=== PATIENT | male | born 1975 | race Hispanic/Latino ===

== ENCOUNTER 2017-09-24 14:12 | Emergency (ER) | payer OTHER ==
[2017-09-24 15:02] LABS: Bilirubin,Urine NEG (Negative); Blood,Urine NEG (Negative); Color,Urine Yellow (Yellow); Urobilinogen,Urine < 2.0 mg/dL (<2.0)
[2017-09-24 15:29] LABS: Mucus,Urine 2+ /HPF
[2017-09-24 15:48] LABS: Basophils # (Auto) 0.1 K/mm3 (0.0-0.1); Basophils % (Auto) 1.1 % (0.0-1.8); Eosinophils # (Auto) 0.2 K/mm3 (0.0-0.4); Eosinophils % (Auto) 1.4 % (0.0-4.3); Lymphocytes # (Auto) 2.4 K/mm3 (1.2-5.4); Lymphocytes % (Auto) 20.9 % (13.4-35.0); Mean Corpuscular HGB Conc 36 % (32-34); Mean Corpuscular Hemoglobin 33 pg (28-32); Mean Corpuscular Volume 93 fl (84-94); Monocytes # (Auto) 1.2 K/mm3 (0.0-0.8); Monocytes % (Auto) 10.3 % (0.0-7.3); Platelet Count 242 K/mm3 (140-440); Red Blood Count 5.44 M/mm3 (3.65-5.03); Red Cell Distribution Width 13.1 % (13.2-15.2)
[2017-09-24 16:09] LABS: Alanine Aminotransferase 85 units/L (7-56); Albumin 4.7 g/dL (3.9-5); BUN/Creatinine Ratio 16; Blood Urea Nitrogen 14 mg/dL (9-20); Calcium 9.5 mg/dL (8.4-10.2); Hemolysis Index 7
--- NOTE | 2017-09-24 16:10 | Emergency Department Report ---
- General Chief complaint: Extremity Injury, Lower Stated complaint: LEG PAIN Time Seen by Provider: 09/24/17 15:59 Source: patient Mode of arrival: Ambulatory Limitations: No Limitations - History of Present Illness Initial comments: This is a 42-year-old male with complaint of bilateral leg pain. He states that he thinks he's been bitten by a spider that he is not sure. Patient reports that this has been there for 4 days and is getting worse. He reports pain at 8 out of 10 both sides aching and burning. Worse with touch and movement and no alleviating factors. Patient did not take any medication for pain or for infected area. Denies any wheezing, cough, stridor or headache. Denies any fever or chills. Patient said that he has been drinking today and he had a shot of vodka in the morning because he was in pain. It was reported on triage on the patient's Michael EtOH but he does not like that to me. Patient denies any back pain or any radiation of pain proximally or distally to both legs. Tetanus vaccine is not up-to-date MD complaint: insect bite/sting, discoloration, other (skin infection) Onset/Timin -: days(s) Tetanus Up to Date: no Location: LLE, RLE Severity: severe Severity scale (0 -10): 8 Quality: burning, aching Consistency: constant Improves with: none Worsens with: palpation, movement Context: other (possible spider bite per patient) Associated symptoms: itching, athralgias Treatments Prior to Arrival: none - Related Data Previous Rx's Medication Instructions Recorded Last Taken Type Meclizine [Antivert] 25 mg PO TID PRN #20 tablet 03/14/14 Unknown Rx Ondansetron [Zofran Odt] 4 mg PO Q6H #20 tab.rapdis 03/14/14 Unknown Rx Acetaminophen/Codeine [Tylenol 1 tab PO Q6H PRN #14 tab 09/24/17 Unknown Rx /Codeine # 3 tab] Ibuprofen [Motrin] 600 mg PO Q8H PRN #12 tablet 09/24/17 Unknown Rx Mupirocin [Bactroban 2%] 1 applic TP BID 7 Days #1 tube 09/24/17 Unknown Rx Sulfamethoxazole/Trimethoprim 1 each PO BID 10 Days #20 tablet 09/24/17 Unknown Rx [Bactrim DS TAB] Allergies Allergy/AdvReac Type Severity Reaction Status Date / Time No Known Allergies Allergy Verified 03/13/14 23:47 Abscess Boil HPI - HPI Chief Complaint: Extremity Injury, Lower Stated Complaint: LEG PAIN Time Seen by Provider: 09/24/17 15:59 Home Medications: Previous Rx's Medication Instructions Recorded Last Taken Type Meclizine [Antivert] 25 mg PO TID PRN #20 tablet 03/14/14 Unknown Rx Ondansetron [Zofran Odt] 4 mg PO Q6H #20 tab.rapdis 03/14/14 Unknown Rx Acetaminophen/Codeine [Tylenol 1 tab PO Q6H PRN #14 tab 09/24/17 Unknown Rx /Codeine # 3 tab] Ibuprofen [Motrin] 600 mg PO Q8H PRN #12 tablet 09/24/17 Unknown Rx Mupirocin [Bactroban 2%] 1 applic TP BID 7 Days #1 tube 09/24/17 Unknown Rx Sulfamethoxazole/Trimethoprim 1 each PO BID 10 Days #20 tablet 09/24/17 Unknown Rx [Bactrim DS TAB] Allergies/Adverse Reactions: Allergies Allergy/AdvReac Type Severity Reaction Status Date / Time No Known Allergies Allergy Verified 03/13/14 23:47 ED Review of Systems ROS: Stated complaint: LEG PAIN Other details as noted in HPI Constitutional: denies: chills, fever Eyes: denies: eye pain, eye discharge, vision change ENT: denies: ear pain, throat pain, congestion Respiratory: denies: cough, shortness of breath, SOB with exertion, SOB at rest , wheezing Cardiovascular: denies: chest pain, palpitations, dyspnea on exertion, edema, syncope, paroxysmal nocturnal dyspnea Gastrointestinal: denies: abdominal pain, nausea, vomiting, diarrhea Genitourinary: denies: urgency, dysuria Musculoskeletal: arthralgia. denies: back pain, joint swelling, myalgia Skin: change in color, pruritus. denies: rash, lesions Neurological: denies: headache, weakness, numbness, paresthesias, confusion, abnormal gait, vertigo Hematological/Lymphatic: denies: easy bleeding, easy bruising, swollen glands ED Past Medical Hx - Past Medical History Previous Medical History?: Yes Hx Hypertension: Yes - Surgical History Past Surgical History?: No - Family History Family history: hypertension - Social History Smoking Status: Current Every Day Smoker Substance Use Type: Alcohol - Medications Home Medications: Home Medications Medication Instructions Recorded Confirmed Last Taken Type Meclizine [Antivert] 25 mg PO TID PRN #20 tablet 03/14/14 Unknown Rx Ondansetron [Zofran Odt] 4 mg PO Q6H #20 tab.rapdis 03/14/14 Unknown Rx Acetaminophen/Codeine [Tylenol 1 tab PO Q6H PRN #14 tab 09/24/17 Unknown Rx /Codeine # 3 tab] Ibuprofen [Motrin] 600 mg PO Q8H PRN #12 tablet 09/24/17 Unknown Rx Mupirocin [Bactroban 2%] 1 applic TP BID 7 Days #1 tube 09/24/17 Unknown Rx Sulfamethoxazole/Trimethoprim 1 each PO BID 10 Days #20 tablet 09/24/17 Unknown Rx [Bactrim DS TAB] ED Physical Exam - General Limitations: No Limitations General appearance: alert, in no apparent distress - Head Head exam: Present: atraumatic, normocephalic, normal inspection, other (normal exam) - Eye Eye exam: Present: normal appearance, PERRL, EOMI Pupils: Present: normal accommodation - ENT ENT exam: Present: normal exam, normal orophraynx, mucous membranes moist, TM's normal bilaterally, normal external ear exam - Neck Neck exam: Present: normal inspection, full ROM, other (no cspine). Absent: tenderness, meningismus, lymphadenopathy - Respiratory Respiratory exam: Present: normal lung sounds bilaterally. Absent: respiratory distress, chest wall tenderness, accessory muscle use - Cardiovascular Cardiovascular Exam: Present: regular rate, normal rhythm, normal heart sounds. Absent: systolic murmur, diastolic murmur - GI/Abdominal GI/Abdominal exam: Present: soft, normal bowel sounds. Absent: distended, tenderness, rigid, organomegaly, mass - Extremities Exam Extremities exam: Present: normal inspection, full ROM, tenderness (bilateral distal legs, anteriorly with cellulititis, TTP. Scant drainage to left sore), normal capillary refill, pedal edema (scant trace bilateral pedal edema), other (no cc to extremities. trace pedal edema, Bilateral . no neurovascular compromise. +2 pedal pulses.). Absent: joint swelling, calf tenderness - Neurological Exam Neurological exam: Present: alert, oriented X3, normal gait, reflexes normal, other (no focal neurological deficit). Absent: motor sensory deficit - Skin Skin exam: Present: warm, dry, erythema, other (skin cellulitis) - Expanded Skin Exam Expanded Type of lesion: Present: bite/sting, other (cellulitis) Distribution of rash: RLE, LLE Description of rash: Present: size (4x7 left distal leg. 4x10 cm to rt distal leg), tenderness (Jae distal anterior leg.), erythematous, swelling, crusting, discharge, other (Distal leg with 4x7 cm erythema and rt leg with 4x10 erythema area. skin darkened to center with opening to center. not well circumscrimed. 2 cm plaque noted to both sites areas.). Absent: fluctuant, indurated ED Course Vital Signs 09/24/17 09/24/17 09/24/17 14:14 17:34 17:35 Temperature 98.7 F Pulse Rate 127 H Respiratory 22 20 20 Rate Blood Pressure 168/103 Blood Pressure [Left] O2 Sat by Pulse 97 Oximetry 09/24/17 09/24/17 09/24/17 18:10 19:12 19:16 Temperature Pulse Rate 102 H 98 H Respiratory 20 18 Rate Blood Pressure Blood Pressure 162/92 [Left] O2 Sat by Pulse 98 Oximetry 09/24/17 20:25 Temperature 98.6 F Pulse Rate 95 H Respiratory 18 Rate Blood Pressure Blood Pressure 157/100 [Left] O2 Sat by Pulse 98 Oximetry - Reevaluation(s) Reevaluation #1: 09/24/17 18:05Patient given normal saline 1 L, morphine 5 mg Toradol 30 mg IV for pain which did not completely relieve his pain. He was given Zofran 8 mg IV to prevent nausea. Cleocin 900 mg IV for infection and posterior exterior 0.5 mL to update tetanus. He has no adverse reaction from medications Reevaluation #2: 09/24/17 19:08 Patient given Percocet 5/325 2 tablets by mouth for continued pain to both legs at cellulitic site. Patient given Bactrim DS one tablet by mouth ride to discharge. I will reevaluate before discharge. Reevaluation #3: 09/24/17 19:48 Patient reports that pain is better. He is enroute home from the emergency room. Wound care to bilateral distal leg. wounds cleansed with normal saline, Neosporin ointment followed by Vaseline impregnated gauze applied to site followed by cling wrap. Patient tolerated procedure well ED Medical Decision Making - Lab Data Result diagrams: 09/24/17 15:36 09/24/17 15:36 Lab Results 09/24/17 09/24/17 09/24/17 Range/Units 15:36 15:36 15:36 WBC 11.2 H (4.5-11.0) K/mm3 RBC 5.44 H (3.65-5.03) M/mm3 Hgb 18.1 H (11.8-15.2) gm/dl Hct 50.7 H (35.5-45.6) % MCV 93 (84-94) fl MCH 33 H (28-32) pg MCHC 36 H (32-34) % RDW 13.1 L (13.2-15.2) % Plt Count 242 (140-440) K/mm3 Lymph % (Auto) 20.9 (13.4-35.0) % [place] % (Auto) 10.3 H (0.0-7.3) % Eos % (Auto) 1.4 (0.0-4.3) % Baso % (Auto) 1.1 (0.0-1.8) % Lymph # 2.4 (1.2-5.4) K/mm3 [place] # 1.2 H (0.0-0.8) K/mm3 Eos # 0.2 (0.0-0.4) K/mm3 Baso # 0.1 (0.0-0.1) K/mm3 Seg Neutrophils % 66.3 (40.0-70.0) % Seg Neutrophils # 7.5 (1.8-7.7) K/mm3 Sodium 135 L (137-145) mmol/L Potassium 4.7 (3.6-5.0) mmol/L Chloride 93.4 L (98-107) mmol/L Carbon Dioxide 24 (22-30) mmol/L Anion Gap 22 mmol/L BUN 14 (9-20) mg/dL Creatinine 0.9 (0.8-1.5) mg/dL Estimated GFR > 60 ml/min BUN/Creatinine Ratio 16 % Glucose 101 H (75-100) mg/dL Calcium 9.5 (8.4-10.2) mg/dL Total Bilirubin 0.70 (0.1-1.2) mg/dL AST 58 H (5-40) units/L ALT 85 H (7-56) units/L Alkaline Phosphatase 90 (35-129) units/L Total Protein 8.1 (6.3-8.2) g/dL Albumin 4.7 (3.9-5) g/dL Albumin/Globulin Ratio 1.4 % Urine Color (Yellow) Urine Turbidity (Clear) Urine pH (5.0-7.0) Ur Specific [place] (1.003-1.030) Urine Protein (Negative) mg/dL Urine Glucose (UA) (Negative) mg/dL Urine Ketones (Negative) mg/dL Urine Blood (Negative) Urine Nitrite (Negative) Urine Bilirubin (Negative) Urine Urobilinogen (<2.0) mg/dL Ur Leukocyte Esterase (Negative) Urine WBC (Auto) (0.0-6.0) /HPF Urine RBC (Auto) (0.0-6.0) /HPF Urine Mucus /HPF Plasma/Serum Alcohol < 0.01 (0-0.07) % 09/24/17 Range/Units Unknown WBC (4.5-11.0) K/mm3 RBC (3.65-5.03) M/mm3 Hgb (11.8-15.2) gm/dl Hct (35.5-45.6) % MCV (84-94) fl MCH (28-32) pg MCHC (32-34) % RDW (13.2-15.2) % Plt Count (140-440) K/mm3 Lymph % (Auto) (13.4-35.0) % [place] % (Auto) (0.0-7.3) % Eos % (Auto) (0.0-4.3) % Baso % (Auto) (0.0-1.8) % Lymph # (1.2-5.4) K/mm3 [place] # (0.0-0.8) K/mm3 Eos # (0.0-0.4) K/mm3 Baso # (0.0-0.1) K/mm3 Seg Neutrophils % (40.0-70.0) % Seg Neutrophils # (1.8-7.7) K/mm3 Sodium (137-145) mmol/L Potassium (3.6-5.0) mmol/L Chloride (98-107) mmol/L Carbon Dioxide (22-30) mmol/L Anion Gap mmol/L BUN (9-20) mg/dL Creatinine (0.8-1.5) mg/dL Estimated GFR ml/min BUN/Creatinine Ratio % Glucose (75-100) mg/dL Calcium (8.4-10.2) mg/dL Total Bilirubin (0.1-1.2) mg/dL AST (5-40) units/L ALT (7-56) units/L Alkaline Phosphatase (35-129) units/L Total Protein (6.3-8.2) g/dL Albumin (3.9-5) g/dL Albumin/Globulin Ratio % Urine Color Yellow (Yellow) Urine Turbidity Clear (Clear) Urine pH 5.0 (5.0-7.0) Ur Specific [place] 1.027 (1.003-1.030) Urine Protein 100 mg/dl (Negative) mg/dL Urine Glucose (UA) Neg (Negative) mg/dL Urine Ketones Neg (Negative) mg/dL Urine Blood Neg (Negative) Urine Nitrite Neg (Negative) Urine Bilirubin Neg (Negative) Urine Urobilinogen < 2.0 (<2.0) mg/dL Ur Leukocyte Esterase Neg (Negative) Urine WBC (Auto) 3.0 (0.0-6.0) /HPF Urine RBC (Auto) 4.0 (0.0-6.0) /HPF Urine Mucus 2+ /HPF Plasma/Serum Alcohol (0-0.07) % - Radiology Data Radiology results: report reviewed - Medical Decision Making This is a 42-year-old male presented to the emergency room complaining that he is having sore, redness and he thinks he has been bitten by something this is been going on for 4 days and is having some drainage from site. Full legs. He denies any fever or chills. He is having pain. Patient said he thinks he has an infection and would like to be treated. I examined patient and found to have bilateral distal leg cellulitis with pedal into the center and scant drainage noted from leg. There is malodorous. Wound culture sent. Pedal pulses are 2+ and he has no neurovascular compromise. Patient had CBC which was stable his white count is 11.1 and H&H is elevated, CMP stable and urinalysis is stable. Patient was treated for pain in emergency room and pain is managed. He was given antinausea medication to prevent nausea and also started on Cleocin 900 mg IV along with normal saline 1 L IV in emergency room. Pain is better. I discussed laboratory results and clinical findings the patient along with diagnosis and he voiced understanding. Dr. Rose saw and examined patient and agrees with treatment plan. A/P 1: Cellulitis bilateral legs secondary to insect bite per patient-patient started on Cleocin 900 mg IV and will be discharged home in [facility]. CBC is stable Patient given Boostrix 0.5 mL to update tetanus. Patient wants cleansed with normal saline, Neosporin ointment place a side followed by Vaseline impregnated gauze and Kristen wrap. Patient will be referred to wound care center. Patient was also given Bactrim DS to start antibiotic treatment . triple antibiotc2: Arthralgia both legs-morphine 5 mg IV, Toradol 30 mg IV and Percocet 5/310 52 tablets emergency room which relieved this pain. He was given Zofran 8 mg IV to prevent nausea from pain medication and he did not have any nausea. Patient educated on diagnosis, laboratory findings, medication, treatment plan and acute wound care and he voiced understanding. Vital signs are stable and is of overall it needs that his pain is better and he feels better. Patient referred to [facility] to follow-up in 2 days and to return to emergency room in 3 days for reevaluation of 1. He voiced understanding. Discharged from emergency room in stable condition with prescription for Bactrim DS, Bactroban, Tylenol 3 and Motrin. Critical care attestation.: If time is entered above; I have spent that time in minutes in the direct care of this critically ill patient, excluding procedure time. ED Disposition Clinical Impression: Bilateral cellulitis of lower leg, Arthralgia of both lower legs, Insect bite of lower leg Disposition: DC-01 TO HOME OR SELFCARE Is pt being admited?: No Does the pt Need Aspirin: No Condition: Stable Instructions: Cellulitis (ED), Insect Bite or Sting (ED), Acute Wound Care (ED) , Arthralgia (ED) Additional Instructions: Please see discharge instruction in acute wound care Return to emergency room in 2 days for follow-up visit for evaluation of wound to both legs Keep affected area clean and dry. Clean with warm soapy water and apply Bactroban ointment twice daily 7 days. Take Tylenol 3 for severe pain and please do not drive or operate heavy machinery while taking this medication Motrin for mild to moderate pain and please take medication with food to prevent nausea or irritation to stomach lining Take Bactrim DS for infection Return to the emergency room if, he developed fever, chills, increased pain and drainage from site, nausea and vomited, increase in redness and/or weakness. Prescriptions: Acetaminophen/Codeine [Tylenol /Codeine # 3 tab] 1 tab PO Q6H PRN #14 tab PRN Reason: moderate to severe pain Ibuprofen [Motrin] 600 mg PO Q8H PRN #12 tablet PRN Reason: Pain Mupirocin [Bactroban 2%] 1 applic TP BID 7 Days #1 tube Sulfamethoxazole/Trimethoprim [Bactrim DS TAB] 1 each PO BID 10 Days #20 tablet Referrals: return to, emergency room in 3 days [Other] - 09/27/17 (This is to reevaluate you want to ensure that it is healing well) [facility] [Outside] - 09/26/17 PRIMARY CAREMD [Primary Care Provider] - 09/26/17
[2017-09-24] MEDS ORDERED: MORPHINE IV ONE (16:13)
[2017-09-24] MEDS ORDERED: NACL 0.9% 1000 ML 1,000 ML IV ONE (16:13)
[2017-09-24] MEDS ORDERED: ZOFRAN IV ONE (16:13)
[2017-09-24] MEDS ORDERED: CLEOCIN 900 MG/50 mL 900 MG/50 ML BAG IV ONE (16:13)
[2017-09-24] MEDS ORDERED: TORADOL IV ONE (16:19)
[2017-09-24] MEDS ORDERED: BOOSTRIX IM ONE (16:19)
[2017-09-24 16:29] LABS: Hematocrit 50.7 % (35.5-45.6); Hemoglobin 18.1 gm/dl (11.8-15.2)
[2017-09-24] MEDS ORDERED: BACTRIM DS PO ONE (19:06)
[2017-09-24] MEDS ORDERED: PERCOCET 5/325 PO ONE (19:06)
[2017-09-24] MEDS ORDERED: TRIPLE ANTIBIOTIC TP ONE (19:48)
[2017-09-24] MEDS ORDERED: ALUM-MAG HYDROX-SIMETH 200-200-20MG/5ML PO ONE (20:14)
[2017-09-24 20:26] VITALS: BP 157/100
== END 2017-09-24 20:27 | disposition home or self-care (01) ==
LOC: ED 14:12
DX: S80.862A Insect bite (nonvenomous), left lower leg, initial encounter (principal); S80.861A Insect bite (nonvenomous), right lower leg, initial encounter; L03.116 Cellulitis of left lower limb; L03.115 Cellulitis of right lower limb; I10 Essential (primary) hypertension; F17.200 Nicotine dependence, unspecified, uncomplicated; W57.XXXA Bitten or stung by nonvenomous insect and other nonvenomous arthropods, initial encounter; Y93.89 Activity, other specified; Y92.89 Other specified places as the place of occurrence of the external cause; Y99.8 Other external cause status
CPT/HCPCS: 36415; 80053; 81001; 85025; 87076; 87116; 87186; 96365; 96375; 99284; G0480; J1885; J2270; J2405; J7030; 80320; A6250

== ENCOUNTER 2017-09-30 09:57 | Inpatient (IN) | payer OTHER ==
[2017-09-30] MEDS ORDERED: NACL 0.9% 500 ML 500 ML IV ONE (10:13)
[2017-09-30 10:45] LABS: Basophils # (Auto) 0.1 K/mm3 (0.0-0.1); Basophils % (Auto) 1.2 % (0.0-1.8); Eosinophils # (Auto) 0.2 K/mm3 (0.0-0.4); Eosinophils % (Auto) 2.5 % (0.0-4.3); Hematocrit 47.1 % (35.5-45.6); Hemoglobin 16.2 gm/dl (11.8-15.2); Lymphocytes # (Auto) 2.2 K/mm3 (1.2-5.4); Lymphocytes % (Auto) 25.7 % (13.4-35.0); Mean Corpuscular HGB Conc 34 % (32-34); Mean Corpuscular Hemoglobin 32 pg (28-32); Mean Corpuscular Volume 94 fl (84-94); Monocytes # (Auto) 0.9 K/mm3 (0.0-0.8); Monocytes % (Auto) 10.8 % (0.0-7.3); Platelet Count 230 K/mm3 (140-440); Red Blood Count 5.02 M/mm3 (3.65-5.03); Red Cell Distribution Width 12.9 % (13.2-15.2)
--- NOTE | 2017-09-30 10:47 | XRay Report ---
Single view chest: History: Possible sepsis. Findings: Normal cardiomediastinal silhouette is midline. Suspicion of a nodule identified in the left cardiophrenic region. Measures 1 cm. Normal CP angles. No consolidation. Impression: Suspicion of a nodular left lower lobe and
[2017-09-30] MEDS ORDERED: VANCOMYCIN PHARMACY TO DOSE IV SCH (11:00)
[2017-09-30] MEDS ORDERED: NACL 0.9% 1000 ML 1,000 ML IV ONE (11:00)
[2017-09-30 11:13] LABS: Alanine Aminotransferase 116 units/L (7-56); Albumin 4.3 g/dL (3.9-5); BUN/Creatinine Ratio 8; Blood Urea Nitrogen 10 mg/dL (9-20); Calcium 9.2 mg/dL (8.4-10.2); Hemolysis Index 6
[2017-09-30 11:16] LABS: Creatine Kinase MB 1.4 ng/mL (0.0-4.0)
--- NOTE | 2017-09-30 11:42 | Emergency Department Report ---
ED General Adult HPI - General Chief complaint: Fever Stated complaint: leg pain Time Seen by Provider: 09/30/17 10:51 Source: patient Mode of arrival: Ambulatory Limitations: No Limitations - History of Present Illness Initial comments: 42-year-old male with third emergency department visit for rash above both ankles. Patient states he initially told [facility] that he had a "rash". He was here less than a week ago and placed on Bactrim and Bactroban for an apparent infection. He states that he works in [employer]. About 2 weeks ago prior to this problem, he was in an apartment complex he states was filled with spiders and snakes doing work. He states he did see spiders bite him or some other insect. He denies a previous history of MRSA. He states that recently he has had fevers and occasionally shaking chills. He did not measure his temperature at home. Additionally he complains of intermittent tightness in his anterior chest sometimes associated with shortness of breath. He is not complaining of this at the time of my encounter. He denies any previous diagnosis of any chronic medical issue to include coronary artery disease or COPD. He also denies intravenous drug abuse. Prescription and ointment. Despite this the redness and swelling has progressed. -: week(s) Location: lower extremity Quality: aching (occasional aching for redness and swelling is the principal complaint) Consistency: intermittent Improves with: none Worsens with: none Associated Symptoms: chest pain, fever/chills Treatments Prior to Arrival: other (see HPI) - Related Data Previous Rx's Medication Instructions Recorded Last Taken Type Meclizine [Antivert] 25 mg PO TID PRN #20 tablet 03/14/14 Unknown Rx Ondansetron [Zofran Odt] 4 mg PO Q6H #20 tab.rapdis 03/14/14 Unknown Rx Acetaminophen/Codeine [Tylenol 1 tab PO Q6H PRN #14 tab 09/24/17 Unknown Rx /Codeine # 3 tab] Ibuprofen [Motrin] 600 mg PO Q8H PRN #12 tablet 09/24/17 Unknown Rx Mupirocin [Bactroban 2%] 1 applic TP BID 7 Days #1 tube 09/24/17 Unknown Rx Sulfamethoxazole/Trimethoprim 1 each PO BID 10 Days #20 tablet 09/24/17 Unknown Rx [Bactrim DS TAB] Allergies Allergy/AdvReac Type Severity Reaction Status Date / Time Penicillins Allergy Itching Verified 09/30/17 10:18 ED Review of Systems ROS: Stated complaint: leg pain Other details as noted in HPI Constitutional: denies: chills, fever Eyes: denies: eye pain, eye discharge, vision change ENT: denies: ear pain, throat pain Respiratory: denies: cough, shortness of breath, wheezing Cardiovascular: denies: chest pain, palpitations Endocrine: no symptoms reported Gastrointestinal: denies: abdominal pain, nausea, diarrhea Genitourinary: denies: urgency, dysuria Musculoskeletal: denies: back pain, joint swelling, arthralgia Skin: denies: rash, lesions Neurological: denies: headache, weakness, paresthesias Psychiatric: denies: anxiety, depression Hematological/Lymphatic: denies: easy bleeding, easy bruising ED Past Medical Hx - Past Medical History Previous Medical History?: Yes Hx Hypertension: Yes - Surgical History Past Surgical History?: No - Social History Smoking Status: Current Every Day Smoker Substance Use Type: None - Medications Home Medications: Home Medications Medication Instructions Recorded Confirmed Last Taken Type Meclizine [Antivert] 25 mg PO TID PRN #20 tablet 03/14/14 Unknown Rx Ondansetron [Zofran Odt] 4 mg PO Q6H #20 tab.rapdis 03/14/14 Unknown Rx Acetaminophen/Codeine [Tylenol 1 tab PO Q6H PRN #14 tab 09/24/17 Unknown Rx /Codeine # 3 tab] Ibuprofen [Motrin] 600 mg PO Q8H PRN #12 tablet 09/24/17 Unknown Rx Mupirocin [Bactroban 2%] 1 applic TP BID 7 Days #1 tube 09/24/17 Unknown Rx Sulfamethoxazole/Trimethoprim 1 each PO BID 10 Days #20 tablet 09/24/17 Unknown Rx [Bactrim DS TAB] ED Physical Exam - General Limitations: No Limitations General appearance: alert, in no apparent distress - Head Head exam: Present: atraumatic, normocephalic - Eye Eye exam: Present: normal appearance, PERRL, EOMI. Absent: scleral icterus - ENT ENT exam: Present: mucous membranes moist - Neck Neck exam: Present: normal inspection. Absent: tenderness, meningismus - Respiratory Respiratory exam: Present: normal lung sounds bilaterally. Absent: respiratory distress - Cardiovascular Cardiovascular Exam: Present: regular rate, normal rhythm. Absent: systolic murmur, diastolic murmur, rubs, gallop - GI/Abdominal GI/Abdominal exam: Present: soft, normal bowel sounds. Absent: distended, tenderness, guarding, rebound, rigid - Rectal Rectal exam: Present: deferred - Extremities Exam Extremities exam: Present: normal inspection - Back Exam Back exam: Present: normal inspection - Neurological Exam Neurological exam: Present: alert, oriented X3, CN II-XII intact. Absent: motor sensory deficit - Psychiatric Psychiatric exam: Present: normal mood, flat affect - Skin Skin exam: Present: other (the patient has normal multiple annular ulcers least through the dermis above the sock line bilaterally. There appears to be some necrosis associated. There is edema and erythema extending below the mid calf bilaterally.). Absent: rash - Other Other exam information: Vascular exam is intact good pulses bilateral feet. ED Course Vital Signs 09/30/17 10:09 Temperature 99.0 F Pulse Rate 123 H Respiratory 20 Rate Blood Pressure 154/90 O2 Sat by Pulse 97 Oximetry - Reevaluation(s) Reevaluation #1: It is entirely possible that this infection started off with insect bites of some sort perhaps spiders. Patient is referred to Dr. Boss. I note he has elevated LFTs. I wouldn't be surprised if he has chronic hepatitis C. 09/30/17 12:23 ED Medical Decision Making - Lab Data Result diagrams: 09/30/17 10:17 09/30/17 10:17 Laboratory Results - last 24 hr 09/30/17 09/30/17 09/30/17 10:17 10:17 10:17 WBC 8.5 RBC 5.02 Hgb 16.2 H Hct 47.1 H MCV 94 MCH 32 MCHC 34 RDW 12.9 L Plt Count 230 Lymph % (Auto) 25.7 [place] % (Auto) 10.8 H Eos % (Auto) 2.5 Baso % (Auto) 1.2 Lymph # 2.2 [place] # 0.9 H Eos # 0.2 Baso # 0.1 Seg Neutrophils % 59.8 Seg Neutrophils # 5.1 PT 13.7 INR 1.00 VBG pH Sodium 139 Potassium 3.8 Chloride 100.4 Carbon Dioxide 21 L Anion Gap 21 BUN 10 Creatinine 1.2 Estimated GFR > 60 BUN/Creatinine Ratio 8 Glucose 125 H Lactic Acid Calcium 9.2 Total Bilirubin 0.50 AST 72 H ALT 116 H Alkaline Phosphatase 87 Total Creatine Kinase CK-MB (CK-2) CK-MB (CK-2) Rel Index Troponin T Total Protein 7.4 Albumin 4.3 Albumin/Globulin Ratio 1.4 09/30/17 09/30/17 09/30/17 10:17 10:17 10:17 WBC RBC Hgb Hct MCV MCH MCHC RDW Plt Count Lymph % (Auto) [place] % (Auto) Eos % (Auto) Baso % (Auto) Lymph # [place] # Eos # Baso # Seg Neutrophils % Seg Neutrophils # PT INR VBG pH 7.411 Sodium Potassium Chloride Carbon Dioxide Anion Gap BUN Creatinine Estimated GFR BUN/Creatinine Ratio Glucose Lactic Acid 1.60 Calcium Total Bilirubin AST ALT Alkaline Phosphatase Total Creatine Kinase 77 CK-MB (CK-2) 1.4 CK-MB (CK-2) Rel Index 1.8 Troponin T < 0.010 Total Protein Albumin Albumin/Globulin Ratio - EKG Data -: EKG Interpreted by Me EKG shows normal: sinus rhythm, axis, intervals, QRS complexes, ST-T waves Rate: normal - EKG Data Interpretation: normal EKG - Radiology Data Radiology results: report reviewed interpreted by me: 1 cm left lower lobe nodule. Critical care attestation.: If time is entered above; I have spent that time in minutes in the direct care of this critically ill patient, excluding procedure time. ED Disposition Clinical Impression: Infected insect bites of multiple sites, Bilateral cellulitis of lower leg, Nodule of lower lobe of left lung, Elevated transaminase level Chest pain Qualifiers: Chest pain type: unspecified Qualified Code(s): R07.9 - Chest pain, unspecified Disposition: OP ADMIT IP TO THIS HOSP Is pt being admited?: Yes Does the pt Need Aspirin: Yes Condition: Stable Instructions: Chest Pain (ED) Referrals: PRIMARY CARE, [Primary Care Provider] - 3-5 Days Time of Disposition: 12:36
[2017-09-30] MEDS ORDERED: MERREM 1,000 MG in NACL 0.9% 100 ML IV ONE (12:05)
[2017-09-30] MEDS ORDERED: TYLENOL PO PRN ×2 (12:22→12:38)
[2017-09-30] MEDS ORDERED: SODIUM CHLORIDE FLUSH SYRINGE 10 ML IV PRN ×2 (12:22→12:38)
[2017-09-30] MEDS ORDERED: ZOFRAN IV PRN ×2 (12:22→12:38)
[2017-09-30] MEDS ORDERED: PROVENTIL IH PRN (12:22)
[2017-09-30] MEDS ORDERED: VANCOMYCIN 2,000 MG in NACL 0.9% 500 ML 500 ML IV ONE (12:30)
[2017-09-30] MEDS ORDERED: ASPIRIN PO ONE (12:36)
[2017-09-30] MEDS ORDERED: ANTIVERT PO PRN (12:38)
[2017-09-30] MEDS ORDERED: DILAUDID IV ONE (12:53)
--- NOTE | 2017-09-30 13:08 | History and Physical Report ---
History of Present Illness Chief complaint: My legs hurt History of present illness: 42 YO Male with Nicotine dependence presents to ED for evaluation. Pt states that he has experienced painful rash to both lower legs over the past 2 weeks with worsening symptoms over the same time frame. Pt was seen and evaluated in ED and treated with outpatient antibiotic therapy. Pt states that he was compliant with oral antibiotics, and topical therapy but his symptoms have worsened. Pt acknowledges subjective fever over the past 3 days. Pt denies trauma, BRBPR, unintentional weight loss, night sweats. Pt is an information technology technician , and prior to the onset of symptoms he was installing an HVAC system at a residence where there were chickens, cats. The patient was working under the home and he also noticed that there were several rats, as well as a bed of snakes. Pt states that the lesions started off as solitary lesions that got progressively worse and spread up both his legs. Pt seen and evaluated in ED and found to have SIRS, BLE Cellulitis. Pt admitted to medical floor. Past History Past Medical History: other (Nicotine Dependence) Past Surgical History: No surgical history, Other (reviewed) Social history: single, lives with family, smoking. denies: alcohol abuse, prescription drug abuse, IV drug use Family history: no significant family history (reviewed) Medications and Allergies Allergies Allergy/AdvReac Type Severity Reaction Status Date / Time Penicillins Allergy Itching Verified 09/30/17 10:18 Home Medications Medication Instructions Recorded Confirmed Last Taken Type Ibuprofen [Motrin] 600 mg PO Q8H PRN #12 tablet 09/24/17 09/30/17 Unknown Rx Mupirocin [Bactroban 2%] 1 applic TP BID 7 Days #1 tube 09/24/17 09/30/17 Unknown Rx Sulfamethoxazole/Trimethoprim 1 each PO BID 10 Days #20 tablet 09/24/17 Unknown Rx [Bactrim DS TAB] Active Meds: Active Medications Acetaminophen (Tylenol) 650 mg PO Q4H PRN PRN Reason: Pain MILD(1-3)/Fever >100.5/FOWLER Albuterol (Proventil) 2.5 mg IH Q4HRT PRN PRN Reason: Shortness Of Breath Vancomycin HCl 2,000 mg/ (Sodium Chloride) 520 mls @ 250 mls/hr IV ONCE ONE Stop: 09/30/17 14:34 Doxycycline Hyclate 100 mg/ (Sodium Chloride) 250 mls @ 250 mls/hr IV Q12HR [facility] ; Protocol Ibuprofen (Motrin) 600 mg PO Q8H PRN PRN Reason: Pain Meclizine HCl (Antivert) 25 mg PO TID PRN PRN Reason: Vertigo Ondansetron HCl (Zofran) 4 mg IV Q8H PRN PRN Reason: Nausea And Vomiting Ondansetron HCl (Zofran Odt) 4 mg PO Q6H [facility]LETTE Ondansetron HCl (Zofran) 4 mg IV Q8H PRN PRN Reason: Nausea And Vomiting Oxycodone/Acetaminophen (Percocet 5/325) 1 tab PO Q6H PRN PRN Reason: Pain, Moderate (4-6) Sodium Chloride (Sodium Chloride Flush Syringe 10 Ml) 10 ml IV BID ARLETTE Sodium Chloride (Sodium Chloride Flush Syringe 10 Ml) 10 ml IV PRN PRN PRN Reason: LINE FLUSH Sodium Chloride (Sodium Chloride Flush Syringe 10 Ml) 10 ml IV BID ARLETTE Sodium Chloride (Sodium Chloride Flush Syringe 10 Ml) 10 ml IV PRN PRN PRN Reason: LINE FLUSH Vancomycin HCl (Vancomycin Pharmacy To Dose) 1 each IV PKCONSULT ARLETTE; Protocol Review of Systems Constitutional: fever, no weight loss, no weight gain, no chills, no sweats, no night sweats, no fatigue, no weakness Ears, nose, mouth and throat: no ear pain, no ear discharge, no tinnitis, no decreased hearing, no nose pain, no nasal congestion, no nasal discharge Cardiovascular: no chest pain, no orthopnea, no palpitations, no rapid/ irregular heart beat, no edema, no syncope Respiratory: no cough, no cough with sputum, no excessive sputum, no hemoptysis , no shortness of breath Gastrointestinal: no abdominal pain, no nausea, no vomiting, no diarrhea, no constipation, no change in bowel habits Genitourinary Male: no hematuria, no flank pain, no discharge Rectal: no pain, no incontinence, no bleeding Musculoskeletal: no neck stiffness, no neck pain, no shooting arm pain, no arm numbness/tingling, no low back pain, no shooting leg pain Integumentary: rash, pruritis, redness, blisters, lesions, darkening of skin Neurological: no transient paralysis, no paralysis, no weakness, no parathesias , no numbness, no tingling, no seizures Psychiatric: no anxiety, no memory loss, no change in sleep habits, no sleep disturbances, no insomnia, no hypersomnia, no change in appetite, no change in libido, no suicidal ideation, no disorientation Endocrine: no cold intolerance, no heat intolerance, no polyphagia, no excessive thirst, no polydipsia, no polyuria, no nocturia, no excessive sweating Hematologic/Lymphatic: no easy bruising, no easy bleeding, no lymphadenopathy, no lymphedema Allergic/Immunologic: no urticaria, no allergic rhinitis, no wheezing, no persistent infections, no anaphylaxis Exam - Constitutional Vitals: Temp Pulse Resp BP Pulse Ox 99.0 F 123 H 20 153/111 99 09/30/17 10:09 09/30/17 10:09 09/30/17 10:09 09/30/17 12:00 09/30/17 12:00 General appearance: Present: mild distress - EENT Eyes: Present: PERRL ENT: hearing intact, clear oral mucosa - Neck Neck: Present: supple, normal ROM - Respiratory Respiratory effort: normal Respiratory: bilateral: CTA - Cardiovascular Heart Sounds: Present: S1 & S2. Absent: rub, click - Extremities Extremities: pulses symmetrical, No edema Extremity abnormal: edema, ulceration, erythema, tenderness Peripheral Pulses: within normal limits - Abdominal General gastrointestinal: Present: soft, non-tender, non-distended, normal bowel sounds Male genitourinary: Present: normal - Integumentary Integumentary: Present: clear, warm, dry - Musculoskeletal Musculoskeletal: gait normal, strength equal bilaterally - Psychiatric Psychiatric: appropriate mood/affect, intact judgment & insight - Neurologic Neurologic: CNII-XII intact, moves all extremities Results - Labs CBC & Chem 7: 09/30/17 10:17 09/30/17 10:17 Labs: Abnormal lab results 09/30/17 09/30/17 09/30/17 Range/Units 10:17 10:17 10:17 Hgb 16.2 H (11.8-15.2) gm/dl Hct 47.1 H (35.5-45.6) % RDW 12.9 L (13.2-15.2) % [place] % (Auto) 10.8 H (0.0-7.3) % [place] # 0.9 H (0.0-0.8) K/mm3 D-Dimer 1274.00 H (0-234) ng/mlDDU Carbon Dioxide 21 L (22-30) mmol/L Glucose 125 H (75-100) mg/dL AST 72 H (5-40) units/L ALT 116 H (7-56) units/L Assessment and Plan - Patient Problems (1) SIRS (systemic inflammatory response syndrome) Current Visit: Yes Status: Acute Plan to address problem: IV antibiotics, IVF, supportive care, HIV 1/2, Hepatitis panel, supportive care. (2) Nicotine dependence with withdrawal Current Visit: Yes Status: Acute Qualifiers: Nicotine product type: cigarettes Qualified Code(s): F17.213 - Nicotine dependence, cigarettes, with withdrawal Plan to address problem: smoking cessation counseling (3) Bilateral cellulitis of lower leg Current Visit: Yes Status: Acute Plan to address problem: IV antibiotics, supportive care. Will treat with empiric antibiotics to comer MRSA. Will also treat with Doxycycline to cover zoonotic infections like Bartonella. wound cultures, wound care nurse consult. (4) Nodule of lower lobe of left lung Current Visit: Yes Status: Acute Plan to address problem: CTA Chest, D dimer, supportive care, (5) DVT prophylaxis Current Visit: Yes Status: Acute Plan to address problem: lovenox s/q
[2017-09-30 14:09] LABS: Hepatitis A Antibody IgM Non-Reactive (NonReactive); Hepatitis B Core IgM Non-Reactive (NonReactive); Hepatitis B Surface Antigen Non-Reactive (Negative); Hepatitis C Virus Antibody Non-Reactive (NonReactive)
--- NOTE | 2017-09-30 14:56 | Cat Scan Report ---
CTA chest: History: Dyspnea. Findings: No evidence thickening as a pulmonary embolism. No mediastinal mass or adenopathy. No pleural pericardial effusion. No acute consolidation and lung parenchyma. Discoid atelectasis left lower lobe. No definite mass. Impression: No evidence of pulmonary embolism. No acute lung changes. Discoid atelectasis left lower lobe.
[2017-09-30] MEDS: PERCOCET 5/325 PO PRN (18:14)
[2017-09-30] MEDS: ZOFRAN ODT PO SCH (18:14)
[2017-09-30] MEDS ORDERED: SODIUM CHLORIDE FLUSH SYRINGE 10 ML IV SCH (22:00)
[2017-09-30] MEDS: DOXYCYCLINE HYCLATE 100 MG in NACL 0.9% 250ML 250 ML IV SCH (22:11)
[2017-09-30] MEDS: MOTRIN PO PRN (22:12)
[2017-09-30] MEDS: SODIUM CHLORIDE FLUSH SYRINGE 10 ML IV SCH (22:13)
[2017-10-01] MEDS: ZOFRAN ODT PO SCH ×5 (00:47→23:41)
[2017-10-01 04:36] LABS: Bilirubin,Urine NEG (Negative); Blood,Urine NEG (Negative); Color,Urine Yellow (Yellow); Protein,Urine <15 mg/dL mg/dL (Negative); Urobilinogen,Urine < 2.0 mg/dL (<2.0); WBC,Urine < 1.0 /HPF (0.0-6.0)
[2017-10-01] MEDS: DOXYCYCLINE HYCLATE 100 MG in NACL 0.9% 250ML 250 ML IV SCH ×2 (11:07→23:04)
[2017-10-01] MEDS: SODIUM CHLORIDE FLUSH SYRINGE 10 ML IV SCH (11:09)
--- NOTE | 2017-10-01 12:16 | Progress Note ---
Assessment and Plan Assessment and plan: SIRS. Continue IV antibiotics and follow cultures. Bilateral lower extremity cellulitis. Continue antibiotics as noted above. Wound care. ID consultation. ? Left lower lobe lung nodule. CTA revealed discoid atelectasis. Follow-up repeat chest x-ray History Interval history: No new issues overnight. Hospitalist Physical - Constitutional Vitals: Temp Pulse Resp BP Pulse Ox 98.5 F 78 18 123/80 95 10/01/17 05:38 10/01/17 05:38 10/01/17 05:38 10/01/17 05:38 10/01/17 09:37 General appearance: Present: no acute distress - EENT Eyes: Present: PERRL, EOM intact ENT: hearing intact, clear oral mucosa, dentition normal - Neck Neck: Present: supple, normal ROM - Respiratory Respiratory effort: normal Respiratory: bilateral: CTA - Cardiovascular Rhythm: regular Heart Sounds: Present: S1 & S2. Absent: gallop, rub - Extremities Extremities: no ischemia, No edema, Full ROM - Abdominal General gastrointestinal: soft, non-tender, non-distended, normal bowel sounds - Integumentary Integumentary: Present: clear, warm, dry - Neurologic Neurologic: CNII-XII intact, moves all extremities Results - Labs CBC & Chem 7: 09/30/17 10:17 09/30/17 10:17 Labs: Laboratory Last Values WBC 8.5 K/mm3 (4.5-11.0) 09/30/17 10:17 RBC 5.02 M/mm3 (3.65-5.03) 09/30/17 10:17 Hgb 16.2 gm/dl (11.8-15.2) H 09/30/17 10:17 Hct 47.1 % (35.5-45.6) H 09/30/17 10:17 MCV 94 fl (84-94) 09/30/17 10:17 MCH 32 pg (28-32) 09/30/17 10:17 MCHC 34 % (32-34) 09/30/17 10:17 RDW 12.9 % (13.2-15.2) L 09/30/17 10:17 Plt Count 230 K/mm3 (140-440) 09/30/17 10:17 Lymph % (Auto) 25.7 % (13.4-35.0) 09/30/17 10:17 [place] % (Auto) 10.8 % (0.0-7.3) H 09/30/17 10:17 Eos % (Auto) 2.5 % (0.0-4.3) 09/30/17 10:17 Baso % (Auto) 1.2 % (0.0-1.8) 09/30/17 10:17 Lymph # 2.2 K/mm3 (1.2-5.4) 09/30/17 10:17 [place] # 0.9 K/mm3 (0.0-0.8) H 09/30/17 10:17 Eos # 0.2 K/mm3 (0.0-0.4) 09/30/17 10:17 Baso # 0.1 K/mm3 (0.0-0.1) 09/30/17 10:17 Seg Neutrophils % 59.8 % (40.0-70.0) 09/30/17 10:17 Seg Neutrophils # 5.1 K/mm3 (1.8-7.7) 09/30/17 10:17 PT 13.7 Sec. (12.2-14.9) 09/30/17 10:17 INR 1.00 (0.87-1.13) 09/30/17 10:17 D-Dimer 1274.00 ng/mlDDU (0-234) H 09/30/17 10:17 VBG pH 7.411 (7.320-7.420) 09/30/17 10:17 Sodium 139 mmol/L (137-145) 09/30/17 10:17 Potassium 3.8 mmol/L (3.6-5.0) 09/30/17 10:17 Chloride 100.4 mmol/L (98-107) 09/30/17 10:17 Carbon Dioxide 21 mmol/L (22-30) L 09/30/17 10:17 Anion Gap 21 mmol/L 09/30/17 10:17 BUN 10 mg/dL (9-20) 09/30/17 10:17 Creatinine 1.2 mg/dL (0.8-1.5) 09/30/17 10:17 Estimated GFR > 60 ml/min 09/30/17 10:17 BUN/Creatinine Ratio 8 % 09/30/17 10:17 Glucose 125 mg/dL (75-100) H 09/30/17 10:17 POC Glucose 173 (70-105) H 10/01/17 11:50 Lactic Acid 0.80 mmol/L (0.7-2.0) 09/30/17 12:56 Calcium 9.2 mg/dL (8.4-10.2) 09/30/17 10:17 Total Bilirubin 0.50 mg/dL (0.1-1.2) 09/30/17 10:17 AST 72 units/L (5-40) H 09/30/17 10:17 ALT 116 units/L (7-56) H 09/30/17 10:17 Alkaline Phosphatase 87 units/L (35-129) 09/30/17 10:17 Total Creatine Kinase 77 units/L (55-170) 09/30/17 10:17 CK-MB (CK-2) 1.4 ng/mL (0.0-4.0) 09/30/17 10:17 CK-MB (CK-2) Rel Index 1.8 (0-4) 09/30/17 10:17 Troponin T < 0.010 ng/mL (0.00-0.029) 09/30/17 10:17 Total Protein 7.4 g/dL (6.3-8.2) 09/30/17 10:17 Albumin 4.3 g/dL (3.9-5) 09/30/17 10:17 Albumin/Globulin Ratio 1.4 % 09/30/17 10:17 Urine Color Yellow (Yellow) 09/30/17 13:00 Urine Turbidity Clear (Clear) 09/30/17 13:00 Urine pH 6.0 (5.0-7.0) 09/30/17 13:00 Ur Specific [place] 1.016 (1.003-1.030) 09/30/17 13:00 Urine Protein <15 mg/dl mg/dL (Negative) 09/30/17 13:00 Urine Glucose (UA) Neg mg/dL (Negative) 09/30/17 13:00 Urine Ketones Neg mg/dL (Negative) 09/30/17 13:00 Urine Blood Neg (Negative) 09/30/17 13:00 Urine Nitrite Neg (Negative) 09/30/17 13:00 Urine Bilirubin Neg (Negative) 09/30/17 13:00 Urine Urobilinogen < 2.0 mg/dL (<2.0) 09/30/17 13:00 Ur Leukocyte Esterase Neg (Negative) 09/30/17 13:00 Urine WBC (Auto) < 1.0 /HPF (0.0-6.0) 09/30/17 13:00 Urine RBC (Auto) 1.0 /HPF (0.0-6.0) 09/30/17 13:00 Hepatitis A IgM Ab Non-reactive (NonReactive) 09/30/17 12:56 Hep Bs Antigen Non-reactive (Negative) 09/30/17 12:56 Hep B Core IgM Ab Non-reactive (NonReactive) 09/30/17 12:56 Hepatitis C Antibody Non-reactive (NonReactive) 09/30/17 12:56 HIV 1&2 Antibody Rapid Non react (Non React) 09/30/17 12:56 HIV P24 Antigen Non react (Non React) 09/30/17 12:56
[2017-10-01] MEDS: PERCOCET 5/325 PO PRN ×2 (13:25→23:04)
[2017-10-02] MEDS: SODIUM CHLORIDE FLUSH SYRINGE 10 ML IV SCH ×2 (00:21→10:32)
[2017-10-02] MEDS: ZOFRAN ODT PO SCH ×3 (06:47→13:00)
[2017-10-02] MEDS: DOXYCYCLINE HYCLATE 100 MG in NACL 0.9% 250ML 250 ML IV SCH ×2 (09:24→21:25)
[2017-10-02] MEDS: PERCOCET 5/325 PO PRN ×2 (09:24→21:25)
--- NOTE | 2017-10-02 11:26 | Progress Note ---
Assessment and Plan Assessment and plan: SIRS. Continue IV antibiotics and follow cultures. Bilateral lower extremity cellulitis. Continue antibiotics as noted above. Wound care. ID consultation. ? Left lower lobe lung nodule. CTA revealed discoid atelectasis. Follow-up repeat chest x-ray History Interval history: No new issues overnight. Hospitalist Physical - Constitutional Vitals: Temp Pulse Resp BP Pulse Ox 98.5 F 90 20 119/81 98 10/02/17 06:03 10/02/17 06:03 10/02/17 09:24 10/02/17 06:03 10/02/17 09:35 General appearance: Present: no acute distress - EENT Eyes: Present: PERRL, EOM intact ENT: hearing intact, clear oral mucosa, dentition normal - Neck Neck: Present: supple, normal ROM - Respiratory Respiratory effort: normal Respiratory: bilateral: CTA - Cardiovascular Rhythm: regular Heart Sounds: Present: S1 & S2. Absent: gallop, rub - Extremities Extremities: no ischemia, No edema, Full ROM - Abdominal General gastrointestinal: soft, non-tender, non-distended, normal bowel sounds - Integumentary Integumentary: Present: clear, warm, dry - Neurologic Neurologic: CNII-XII intact, moves all extremities Results - Labs CBC & Chem 7: 09/30/17 10:17 09/30/17 10:17 Labs: Laboratory Last Values WBC 8.5 K/mm3 (4.5-11.0) 09/30/17 10:17 RBC 5.02 M/mm3 (3.65-5.03) 09/30/17 10:17 Hgb 16.2 gm/dl (11.8-15.2) H 09/30/17 10:17 Hct 47.1 % (35.5-45.6) H 09/30/17 10:17 MCV 94 fl (84-94) 09/30/17 10:17 MCH 32 pg (28-32) 09/30/17 10:17 MCHC 34 % (32-34) 09/30/17 10:17 RDW 12.9 % (13.2-15.2) L 09/30/17 10:17 Plt Count 230 K/mm3 (140-440) 09/30/17 10:17 Lymph % (Auto) 25.7 % (13.4-35.0) 09/30/17 10:17 [place] % (Auto) 10.8 % (0.0-7.3) H 09/30/17 10:17 Eos % (Auto) 2.5 % (0.0-4.3) 09/30/17 10:17 Baso % (Auto) 1.2 % (0.0-1.8) 09/30/17 10:17 Lymph # 2.2 K/mm3 (1.2-5.4) 09/30/17 10:17 [place] # 0.9 K/mm3 (0.0-0.8) H 09/30/17 10:17 Eos # 0.2 K/mm3 (0.0-0.4) 09/30/17 10:17 Baso # 0.1 K/mm3 (0.0-0.1) 09/30/17 10:17 Seg Neutrophils % 59.8 % (40.0-70.0) 09/30/17 10:17 Seg Neutrophils # 5.1 K/mm3 (1.8-7.7) 09/30/17 10:17 PT 13.7 Sec. (12.2-14.9) 09/30/17 10:17 INR 1.00 (0.87-1.13) 09/30/17 10:17 D-Dimer 1274.00 ng/mlDDU (0-234) H 09/30/17 10:17 VBG pH 7.411 (7.320-7.420) 09/30/17 10:17 Sodium 139 mmol/L (137-145) 09/30/17 10:17 Potassium 3.8 mmol/L (3.6-5.0) 09/30/17 10:17 Chloride 100.4 mmol/L (98-107) 09/30/17 10:17 Carbon Dioxide 21 mmol/L (22-30) L 09/30/17 10:17 Anion Gap 21 mmol/L 09/30/17 10:17 BUN 10 mg/dL (9-20) 09/30/17 10:17 Creatinine 1.2 mg/dL (0.8-1.5) 09/30/17 10:17 Estimated GFR > 60 ml/min 09/30/17 10:17 BUN/Creatinine Ratio 8 % 09/30/17 10:17 Glucose 125 mg/dL (75-100) H 09/30/17 10:17 POC Glucose 88 (70-105) 10/01/17 21:33 Lactic Acid 0.80 mmol/L (0.7-2.0) 09/30/17 12:56 Calcium 9.2 mg/dL (8.4-10.2) 09/30/17 10:17 Total Bilirubin 0.50 mg/dL (0.1-1.2) 09/30/17 10:17 AST 72 units/L (5-40) H 09/30/17 10:17 ALT 116 units/L (7-56) H 09/30/17 10:17 Alkaline Phosphatase 87 units/L (35-129) 09/30/17 10:17 Total Creatine Kinase 77 units/L (55-170) 09/30/17 10:17 CK-MB (CK-2) 1.4 ng/mL (0.0-4.0) 09/30/17 10:17 CK-MB (CK-2) Rel Index 1.8 (0-4) 09/30/17 10:17 Troponin T < 0.010 ng/mL (0.00-0.029) 09/30/17 10:17 Total Protein 7.4 g/dL (6.3-8.2) 09/30/17 10:17 Albumin 4.3 g/dL (3.9-5) 09/30/17 10:17 Albumin/Globulin Ratio 1.4 % 09/30/17 10:17 Urine Color Yellow (Yellow) 09/30/17 13:00 Urine Turbidity Clear (Clear) 09/30/17 13:00 Urine pH 6.0 (5.0-7.0) 09/30/17 13:00 Ur Specific [place] 1.016 (1.003-1.030) 09/30/17 13:00 Urine Protein <15 mg/dl mg/dL (Negative) 09/30/17 13:00 Urine Glucose (UA) Neg mg/dL (Negative) 09/30/17 13:00 Urine Ketones Neg mg/dL (Negative) 09/30/17 13:00 Urine Blood Neg (Negative) 09/30/17 13:00 Urine Nitrite Neg (Negative) 09/30/17 13:00 Urine Bilirubin Neg (Negative) 09/30/17 13:00 Urine Urobilinogen < 2.0 mg/dL (<2.0) 09/30/17 13:00 Ur Leukocyte Esterase Neg (Negative) 09/30/17 13:00 Urine WBC (Auto) < 1.0 /HPF (0.0-6.0) 09/30/17 13:00 Urine RBC (Auto) 1.0 /HPF (0.0-6.0) 09/30/17 13:00 Hepatitis A IgM Ab Non-reactive (NonReactive) 09/30/17 12:56 Hep Bs Antigen Non-reactive (Negative) 09/30/17 12:56 Hep B Core IgM Ab Non-reactive (NonReactive) 09/30/17 12:56 Hepatitis C Antibody Non-reactive (NonReactive) 09/30/17 12:56 HIV 1&2 Antibody Rapid Non react (Non React) 09/30/17 12:56 HIV P24 Antigen Non react (Non React) 09/30/17 12:56
[2017-10-03] MEDS: ZOFRAN ODT PO SCH ×5 (04:19→21:42)
[2017-10-03] MEDS: SODIUM CHLORIDE FLUSH SYRINGE 10 ML IV SCH ×3 (04:20→21:43)
--- NOTE | 2017-10-03 08:48 | Progress Note ---
Assessment and Plan Assessment and plan: SIRS. Continue IV antibiotics and follow cultures. Bilateral lower extremity cellulitis. Continue antibiotics as noted above. Wound care. ID consultation pending No Left lower lobe lung nodule. CTA revealed discoid atelectasis. Follow-up repeat chest x-ray tobacco abuse. Pt. will be counseled on cessation at discharge History Interval history: No new issues overnight. Hospitalist Physical - Constitutional Vitals: Temp Pulse Resp BP Pulse Ox 97.9 F 84 18 121/76 94 10/03/17 05:18 10/03/17 05:18 10/03/17 05:18 10/03/17 05:18 10/03/17 05:18 General appearance: Present: no acute distress - EENT Eyes: Present: PERRL, EOM intact ENT: hearing intact, clear oral mucosa, dentition normal - Neck Neck: Present: supple, normal ROM - Respiratory Respiratory effort: normal Respiratory: bilateral: CTA - Cardiovascular Rhythm: regular Heart Sounds: Present: S1 & S2. Absent: gallop, rub - Extremities Extremities: no ischemia, No edema, Full ROM - Abdominal General gastrointestinal: soft, non-tender, non-distended, normal bowel sounds - Integumentary Integumentary: Present: clear, warm, dry - Neurologic Neurologic: CNII-XII intact, moves all extremities Results - Labs CBC & Chem 7: 09/30/17 10:17 09/30/17 10:17 Labs: Laboratory Last Values WBC 8.5 K/mm3 (4.5-11.0) 09/30/17 10:17 RBC 5.02 M/mm3 (3.65-5.03) 09/30/17 10:17 Hgb 16.2 gm/dl (11.8-15.2) H 09/30/17 10:17 Hct 47.1 % (35.5-45.6) H 09/30/17 10:17 MCV 94 fl (84-94) 09/30/17 10:17 MCH 32 pg (28-32) 09/30/17 10:17 MCHC 34 % (32-34) 09/30/17 10:17 RDW 12.9 % (13.2-15.2) L 09/30/17 10:17 Plt Count 230 K/mm3 (140-440) 09/30/17 10:17 Lymph % (Auto) 25.7 % (13.4-35.0) 09/30/17 10:17 [place] % (Auto) 10.8 % (0.0-7.3) H 09/30/17 10:17 Eos % (Auto) 2.5 % (0.0-4.3) 09/30/17 10:17 Baso % (Auto) 1.2 % (0.0-1.8) 09/30/17 10:17 Lymph # 2.2 K/mm3 (1.2-5.4) 09/30/17 10:17 [place] # 0.9 K/mm3 (0.0-0.8) H 09/30/17 10:17 Eos # 0.2 K/mm3 (0.0-0.4) 09/30/17 10:17 Baso # 0.1 K/mm3 (0.0-0.1) 09/30/17 10:17 Seg Neutrophils % 59.8 % (40.0-70.0) 09/30/17 10:17 Seg Neutrophils # 5.1 K/mm3 (1.8-7.7) 09/30/17 10:17 PT 13.7 Sec. (12.2-14.9) 09/30/17 10:17 INR 1.00 (0.87-1.13) 09/30/17 10:17 D-Dimer 1274.00 ng/mlDDU (0-234) H 09/30/17 10:17 VBG pH 7.411 (7.320-7.420) 09/30/17 10:17 Sodium 139 mmol/L (137-145) 09/30/17 10:17 Potassium 3.8 mmol/L (3.6-5.0) 09/30/17 10:17 Chloride 100.4 mmol/L (98-107) 09/30/17 10:17 Carbon Dioxide 21 mmol/L (22-30) L 09/30/17 10:17 Anion Gap 21 mmol/L 09/30/17 10:17 BUN 10 mg/dL (9-20) 09/30/17 10:17 Creatinine 1.2 mg/dL (0.8-1.5) 09/30/17 10:17 Estimated GFR > 60 ml/min 09/30/17 10:17 BUN/Creatinine Ratio 8 % 09/30/17 10:17 Glucose 125 mg/dL (75-100) H 09/30/17 10:17 POC Glucose 88 (70-105) 10/01/17 21:33 Lactic Acid 0.80 mmol/L (0.7-2.0) 09/30/17 12:56 Calcium 9.2 mg/dL (8.4-10.2) 09/30/17 10:17 Total Bilirubin 0.50 mg/dL (0.1-1.2) 09/30/17 10:17 AST 72 units/L (5-40) H 09/30/17 10:17 ALT 116 units/L (7-56) H 09/30/17 10:17 Alkaline Phosphatase 87 units/L (35-129) 09/30/17 10:17 Total Creatine Kinase 77 units/L (55-170) 09/30/17 10:17 CK-MB (CK-2) 1.4 ng/mL (0.0-4.0) 09/30/17 10:17 CK-MB (CK-2) Rel Index 1.8 (0-4) 09/30/17 10:17 Troponin T < 0.010 ng/mL (0.00-0.029) 09/30/17 10:17 Total Protein 7.4 g/dL (6.3-8.2) 09/30/17 10:17 Albumin 4.3 g/dL (3.9-5) 09/30/17 10:17 Albumin/Globulin Ratio 1.4 % 09/30/17 10:17 Urine Color Yellow (Yellow) 09/30/17 13:00 Urine Turbidity Clear (Clear) 09/30/17 13:00 Urine pH 6.0 (5.0-7.0) 09/30/17 13:00 Ur Specific [place] 1.016 (1.003-1.030) 09/30/17 13:00 Urine Protein <15 mg/dl mg/dL (Negative) 09/30/17 13:00 Urine Glucose (UA) Neg mg/dL (Negative) 09/30/17 13:00 Urine Ketones Neg mg/dL (Negative) 09/30/17 13:00 Urine Blood Neg (Negative) 09/30/17 13:00 Urine Nitrite Neg (Negative) 09/30/17 13:00 Urine Bilirubin Neg (Negative) 09/30/17 13:00 Urine Urobilinogen < 2.0 mg/dL (<2.0) 09/30/17 13:00 Ur Leukocyte Esterase Neg (Negative) 09/30/17 13:00 Urine WBC (Auto) < 1.0 /HPF (0.0-6.0) 09/30/17 13:00 Urine RBC (Auto) 1.0 /HPF (0.0-6.0) 09/30/17 13:00 Hepatitis A IgM Ab Non-reactive (NonReactive) 09/30/17 12:56 Hep Bs Antigen Non-reactive (Negative) 09/30/17 12:56 Hep B Core IgM Ab Non-reactive (NonReactive) 09/30/17 12:56 Hepatitis C Antibody Non-reactive (NonReactive) 09/30/17 12:56 HIV 1&2 Antibody Rapid Non react (Non React) 09/30/17 12:56 HIV P24 Antigen Non react (Non React) 09/30/17 12:56
[2017-10-03] MEDS: PERCOCET 5/325 PO PRN ×2 (10:47→18:10)
[2017-10-03] MEDS: DOXYCYCLINE HYCLATE 100 MG in NACL 0.9% 250ML 250 ML IV SCH (10:48)
--- NOTE | 2017-10-03 11:41 | Consultation ---
History of Present Illness - Reason for Consult Consult date: 10/03/17 cellulitis Requesting physician: RENETTA SCHWAB - History of Present Illness 42 y/o male with tobacco abuse; admitted on 09/30/17 due to 2-3 week history of multiple painful lesions in bilateral ankles. Patient reports that he thought he was bit by spiders, lesions are associated with bilateral ankle erythema, edema, tenderness. Also noted lesions have been draining serous secretion. Denies fever or chills. Denies any injuries. Smokes half a pack a day for several years. Alcohol 2-3 beers a day. The previously incarcerated. Initially seen in the ED and treated with outpatient antibiotic therapy. Pt states that he was compliant with oral antibiotics, and topical therapy but his symptoms have worsened. Pt acknowledges subjective fever over the past 3 days. 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 The patient was working under the home and he also noticed that there were several rats, as well as a bed of snakes. In the ED, initial temperature 99, heart rate 123, respiration 20, blood pressure 154/90. Initial white count 8.5. Hemoglobin 16.2. Platelets 230. Creatinine 1.2. Lactate 1.6. AST 72. ALT is 116. Urinalysis is negative. Viral Hepatitis panel negative. HIV negative. CTA of the chest showed discoid atelectases in the left lower lobe. Chest x-ray showed left lower lobe nodule. Microbiology: Blood cultures: 09/30 ngtd Current Antimicrobials: doxycycline vanco Previous Antimicrobials: Past History Past Medical History: other (Nicotine Dependence) Past Surgical History: No surgical history, Other (reviewed) Social history: single, lives with family, smoking. denies: alcohol abuse, prescription drug abuse, IV drug use Family history: no significant family history (reviewed) Medications and Allergies Allergies Allergy/AdvReac Type Severity Reaction Status Date / Time Penicillins Allergy Itching Verified 09/30/17 10:18 Home Medications Medication Instructions Recorded Confirmed Last Taken Type Ibuprofen [Motrin] 600 mg PO Q8H PRN #12 tablet 09/24/17 09/30/17 Unknown Rx Mupirocin [Bactroban 2%] 1 applic TP BID 7 Days #1 tube 09/24/17 09/30/17 Unknown Rx Sulfamethoxazole/Trimethoprim 1 each PO BID 10 Days #20 tablet 09/24/17 Unknown Rx [Bactrim DS TAB] Active Meds: Active Medications Acetaminophen (Tylenol) 650 mg PO Q4H PRN PRN Reason: Pain MILD(1-3)/Fever >100.5/FOWLER Albuterol (Proventil) 2.5 mg IH Q4HRT PRN PRN Reason: Shortness Of Breath Doxycycline Hyclate 100 mg/ (Sodium Chloride) 250 mls @ 250 mls/hr IV Q12HR [facility] ; Protocol Last Admin: 10/03/17 10:48 Dose: 250 mls/hr Ibuprofen (Motrin) 600 mg PO Q8H PRN PRN Reason: Pain, mild Last Admin: 09/30/17 22:12 Dose: 600 mg Meclizine HCl (Antivert) 25 mg PO TID PRN PRN Reason: Vertigo Ondansetron HCl (Zofran) 4 mg IV Q8H PRN PRN Reason: Nausea And Vomiting Ondansetron HCl (Zofran Odt) 4 mg PO Q6H [facility] Last Admin: 10/03/17 08:04 Dose: Not Given Oxycodone/Acetaminophen (Percocet 5/325) 1 tab PO Q6H PRN PRN Reason: Pain, Moderate (4-6) Last Admin: 10/03/17 10:47 Dose: 1 tab Sodium Chloride (Sodium Chloride Flush Syringe 10 Ml) 10 ml IV PRN PRN PRN Reason: LINE FLUSH Sodium Chloride (Sodium Chloride Flush Syringe 10 Ml) 10 ml IV BID [facility] Last Admin: 10/03/17 04:20 Dose: 10 ml Vancomycin HCl (Vancomycin Pharmacy To Dose) 1 each IV PKCONSULT [facility]; Protocol Review of Systems All systems: negative (as per HPI) Physical Examination - Physical Exam Narrative exam: General appearance: Alert in NAD, conversant Eyes: anicteric sclerae, moist conjunctivae; no lid-lag; PERRLA HENT: Atraumatic; oropharynx clear with moist mucous membranes and no mucosal ulcerations/no oral thrush; normal hard and soft palate. Normal external ears. Neck: Trachea midline; supple, no thyromegaly or lymphadenopathy Lungs: CTA, with normal respiratory effort and no intercostal retractions CV: RRR, no murmurs Abdomen: Soft, non-tender; no masses or hepatosplenomegaly Extremities: No peripheral edema or extremity lymphadenopathy Skin: Bilateral ankle in her edema, erythema and multiple irregular with scabs and central necrosis. Psych: Appropriate affect, alert and oriented to person, place and time. Neuro: alert and oriented x 3. Moving all extermities Lines: No CVL / PICC - Constitutional Vitals: Vital Signs Temp Pulse Resp BP Pulse Ox 97.9 F 84 18 121/76 94 10/03/17 05:18 10/03/17 05:18 10/03/17 05:18 10/03/17 05:18 10/03/17 05:18 Temperature -Last 24 Hours Temperature 97.9 F Temperature 98.8 F Temperature 98.6 F Temperature 97.5 F Results - Labs CBC & Chem 7: 09/30/17 10:17 09/30/17 10:17 Assessment and Plan Assessment: 1) Sepsis: Present on admission, manifested by tachycardia, leukocytosis, increased lactate. Etiology most likely cellulitis. 2) Bilateral ankle lesions with associated cellulitis: lesions from insect bites ? exposed in the work environment to chickens, cats, rats, bed of snakes. 3) Tobacco abuse 4) Elevated LFTs- AST 72. ALT is 116. Viral Hepatitis panel negative. HIV negative. 5) Penicillin allergy Plan: -obtain rafia leg arterial US r/o PVD -obtain C-reactive protein (CRP) -continue vanco -add levaquin -stop doxy -rafia leg elevation Thank you for your consultation, will follow up with you. Rebecca Austin MD Infectious Diseases Specialist [facility] M [phone] O [phone]
[2017-10-03] MEDS ORDERED: VANCOMYCIN PHARMACY TO DOSE IV SCH (12:00)
[2017-10-03] MEDS ORDERED: VANCOMYCIN VIAL 1,000 MG in NACL 0.9% 100 ML IV SCH (12:00)
[2017-10-03 13:26] LABS: BUN/Creatinine Ratio 15; Blood Urea Nitrogen 15 mg/dL (9-20); Calcium 9.5 mg/dL (8.4-10.2); Hemolysis Index 9
[2017-10-03] MEDS: VANCOMYCIN 1,250 MG in NACL 0.9% 250ML 250 ML IV SCH (13:32)
[2017-10-03] MEDS: LEVAQUIN 750MG/150ML 750 MG/150 ML BAG IV SCH (13:32)
[2017-10-03] MEDS: MOTRIN PO PRN ×2 (13:45→21:42)
[2017-10-04] MEDS: ZOFRAN ODT PO SCH ×3 (01:24→16:07)
[2017-10-04] MEDS: VANCOMYCIN 1,250 MG in NACL 0.9% 250ML 250 ML IV SCH ×2 (01:25→16:06)
[2017-10-04] MEDS: PERCOCET 5/325 PO PRN (01:25)
[2017-10-04] MEDS: LEVAQUIN 750MG/150ML 750 MG/150 ML BAG IV SCH (09:49)
[2017-10-04] MEDS: SODIUM CHLORIDE FLUSH SYRINGE 10 ML IV SCH (09:54)
[2017-10-04 13:05] VITALS: BP 134/93
--- NOTE | 2017-10-04 16:31 | Discharge Summary ---
Providers - Providers Date of Admission: 09/30/17 12:22 Date of discharge: 10/04/17 Attending physician: MAYANK WRAY 09/30/17 12:51 Consult to Wound/ET Nurse [CONS] Routine Reason For Exam: wound eval 10/03/17 08:46 Consult to Physician [CONS] Routine Comment: Consulting Provider: ZEINAB TONY Physician Instructions: Reason For Exam: cellulitis 10/03/17 10:19 Consult to Wound/ET Nurse [CONS] Routine Reason For Exam: wound eval Primary care physician: 3RD PRESSMAN Hospitalization Condition: Fair Disposition: DC-01 TO HOME OR SELFCARE Core Measure Documentation - Palliative Care Palliative Care/ Comfort Measures: Not Applicable - Core Measures Any of the following diagnoses?: none Exam - Constitutional Vitals: Temp Pulse Resp BP Pulse Ox 98.5 F 96 H 20 134/93 96 10/04/17 12:30 10/04/17 12:30 10/04/17 12:30 10/04/17 12:30 10/04/17 12:30 Plan Activity: advance as tolerated Diet: low fat, low cholesterol, low salt Special Instructions: home health RN Additional Instructions: 1.Follow up with PCP or [facility] in 1 week. 2.Follow up with Dr. Johnson, ID Physician in 1 week. 3.Home health for wound care. Follow up with: PRIMARY CARE, [Primary Care Provider] - 3-5 Days Prescriptions: Doxycycline [Vibramycin CAP] 100 mg PO Q12HR 8 Days capsule Levofloxacin [Levaquin TAB] 500 mg PO QDAY 8 Days tablet traMADol [Ultram 50 MG tab] 50 mg PO Q6HR PRN #10 tablet PRN Reason: Pain
[2017-10-04] MEDS: MOTRIN PO PRN (18:05)
--- NOTE | 2017-10-04 18:40 | Progress Note ---
Assessment and Plan Assessment: 1) Sepsis: better. Etiology most likely cellulitis. 2) Bilateral ankle lesions with associated cellulitis: lesions from insect bites ? exposed in the work environment to chickens, cats, rats, bed of snakes. CRP= 0.3 3) Tobacco abuse 4) Elevated LFTs- AST 72. ALT is 116. Viral Hepatitis panel negative. HIV negative. 5) Penicillin allergy Plan: -obtain rafia leg arterial US r/o PVD -ok to d/c on levaquin and doxycycline po total 10 days -rafia leg elevation Thank you for your consultation, will follow up with you. Rebecca Austin MD Infectious Diseases Specialist [facility] [phone] O [phone] Subjective Date of service: 10/04/17 Interval history: Feels better. no fever. Microbiology: Blood cultures: 09/30 ngtd Current Antimicrobials: levaquin vanco Previous Antimicrobials: doxycycline Objective - Exam Narrative Exam: General appearance: Alert in NAD, conversant Eyes: anicteric sclerae, moist conjunctivae; no lid-lag; PERRLA HENT: Atraumatic; oropharynx clear with moist mucous membranes and no mucosal ulcerations/no oral thrush; normal hard and soft palate. Normal external ears. Neck: Trachea midline; supple, no thyromegaly or lymphadenopathy Lungs: CTA, with normal respiratory effort and no intercostal retractions CV: RRR, no murmurs Abdomen: Soft, non-tender; no masses or hepatosplenomegaly Extremities: No peripheral edema or extremity lymphadenopathy Skin: Bilateral ankle in her edema, erythema and multiple irregular with scabs and central necrosis. Psych: Appropriate affect, alert and oriented to person, place and time. Neuro: alert and oriented x 3. Moving all extermities Lines: No CVL / PICC - Constitutional Vitals: Vital Signs Temp Pulse Resp BP Pulse Ox 98.5 F 96 H 20 134/93 96 10/04/17 12:30 10/04/17 12:30 10/04/17 12:30 10/04/17 12:30 10/04/17 12:30 Temperature -Last 24 Hours Temperature 98.5 F Temperature 98.5 F Temperature 98.5 F - Labs CBC & Chem 7: 09/30/17 10:17 10/03/17 12:29
== END 2017-10-04 19:05 | disposition home or self-care (01) | DRG 872 ==
LOC: ED 09:57 → 3A 12:22
PROVIDERS: ADMIT Internal Medicine; ATTEND Internal Medicine
DX: A41.9 Sepsis, unspecified organism (principal); L03.116 Cellulitis of left lower limb; L03.115 Cellulitis of right lower limb; F17.203 Nicotine dependence unspecified, with withdrawal; M25.872 Other specified joint disorders, left ankle and foot; M25.871 Other specified joint disorders, right ankle and foot; R91.1 Solitary pulmonary nodule; I10 Essential (primary) hypertension; S80.869A Insect bite (nonvenomous), unspecified lower leg, initial encounter; W57.XXXA Bitten or stung by nonvenomous insect and other nonvenomous arthropods, initial encounter; Z88.0 Allergy status to penicillin; Z79.899 Other long term (current) drug therapy; Z71.6 Tobacco abuse counseling; Y93.89 Activity, other specified; Y92.098 Other place in other non-institutional residence as the place of occurrence of the external cause; Y99.8 Other external cause status
CPT/HCPCS: 36415; 71045; 71275; 80048; 80053; 80074; 81001; 82140; 82550; 82553; 82805; 82962; 84484; 85025; 85379; 85610; 86140; 87040; 87086; 87116; 87806; 93005; 93010; 93925; 93970; J1170; J1956; J2185; J3370; J7030; J7040; J7050; Q0162; Q9967